=== PATIENT | male | born 1985 | race Caucasian/White ===

== ENCOUNTER 2025-05-23 12:43 | Emergency (ER) | payer MEDICAID ==
[~2025-05-23] VITALS: Ht 175.3 cm; Wt 86.8 kg
[2025-05-23 12:48] VITALS: BP 133/81; PULSE 92; RESP 20; TEMP 98.1; O2SAT 97
[2025-05-23] MEDS ORDERED: LIDOCAINE 1% 10 ML VIAL ONE (14:14)
[2025-05-23] MEDS ORDERED: BACI28.410 TP (14:26)
[2025-05-23] MEDS ORDERED: ACET-66 PO (14:26)
== END 2025-05-23 14:47 | disposition home or self-care (01) ==
LOC: EMS 12:45
DX: S61.412A Laceration without foreign body of left hand, initial encounter (principal); S51.812A Laceration without foreign body of left forearm, initial encounter; F10.129 Alcohol abuse with intoxication, unspecified; W26.8XXA Contact with other sharp object(s), not elsewhere classified, initial encounter; Y93.89 Activity, other specified; Y92.89 Other specified places as the place of occurrence of the external cause; Y99.8 Other external cause status; Y90.9 Presence of alcohol in blood, level not specified
CPT/HCPCS: 99283; 12002; J3490